=== PATIENT | female | born 1960 | race Two or more races ===

== ENCOUNTER → 2016-08-17 | Day surgery (SDC) | payer BC ==
[~2016-08-17] VITALS: Ht 162.6 cm; Wt 63.5 kg
[~2016-08-17] MED LIST: FENTAnyl 50 MCG/ML VIAL ONE; MIDAZOLAM 1 MG/ML 2 ML INJ ONE; NO HOME MEDS
[2016-08-17 12:21] VITALS: Ht 162.6 cm; Wt 63.5 kg
[2016-08-17 12:52] VITALS: BP 110/59; PULSE 81; RESP 24
[2016-08-17 13:48] VITALS: BP 113/55; PULSE 67; RESP 13
[2016-08-17 14:10] VITALS: BP 106/60; PULSE 74; RESP 18
--- NOTE | 2016-08-17 14:13 | GILP ---
DATE OF PROCEDURE: 08/17/2016 NAME OF PROCEDURE: Colonoscopy. SURGEON: Vinod Barkley MD PREOPERATIVE DIAGNOSIS: Screening colonoscopy. POSTOPERATIVE DIAGNOSES: 1. Colonoscopy all the way to the cecum. 2. Internal hemorrhoids. 3. No colon neoplasm was identified. INDICATION FOR THE PROCEDURE: Ms. Olga Rangel is a 56-year-old female patient who was scheduled for screening colonoscopy. The procedure and possible complications were well explained to the patient. The patient understood and consented to the procedure. DESCRIPTION OF PROCEDURE: Under the influence of fentanyl and Versed, the colonoscope was carefully introduced in the rectum, and under direct vision, it was advanced all the way to the cecum. FINDINGS: The patient had internal hemorrhoids. No colon neoplasm was identified. She tolerated the procedure very well, and there was no complication from the procedure. At the end of the procedure, she was awake with stable vital signs and she was discharged home to the care of her family. IMPRESSION: 1. Colonoscopy all the way to the cecum. 2. Internal hemorrhoids. 3. No colon neoplasm was identified. PLAN: Next screening colonoscopy in 10 years. Dictated By: VINOD RYAN/ELDON Conf#: [id number] DID#: [id number]
== END | disposition home or self-care (01) ==
LOC: GIL 11:42
PROVIDERS: ATTEND Internal Medicine Gastroenterology
DX: Z12.11 Encounter for screening for malignant neoplasm of colon (principal); K64.8 Other hemorrhoids
CPT/HCPCS: 45378; J2250; J3010; Z7610